=== PATIENT | male | born 1960 | race Caucasian/White ===

== ENCOUNTER 2019-12-11 10:32 | Day surgery (SDC) | payer OTHER ==
[2019-12-11 11:29] VITALS: BMI 30.7
[2019-12-11 12:31] VITALS: TEMP 97.6
[2019-12-11 12:53] VITALS: BP 125/82; PULSE 62
--- NOTE | 2019-12-12 18:14 | PATH ---
Surgical Pathology Report Patient Name: VIVIANA ROJAS [facility]. Rec. #: [id number] /Age/Gender: 1960 (Age: 59) / M Account: [id number] Location: U-ENDOSCOPY Taken: 12/11/2019 Received: 12/11/2019 Reported: 12/12/2019 Physicians: Syed Quevedo D.O. Specimen(s) Received A: ANTRUM B: ANGULARIS AND BODY C: CARDIA POLYP Clinical History Abdominal pain Postoperative diagnosis: Gastritis and polyp at the cardia Final Diagnosis A. Stomach, antrum, biopsy: Gastric ANTRAL mucosa with moderate chronic gastritis and focal intestinal metaplasia. No dysplasia identified. Immunohistochemical STAIN FOR H. Pylori is negative. B. Stomach, angularis and body, biopsy: Gastric body mucosa with moderate chronic gastritis. Immunohistochemical STAIN FOR H. Pylori is negative. C. Stomach, CARDIA POLYP, biopsy: Gastric hyperplastic polyp. Immunohistochemical STAIN FOR H. Pylori is negative. Positive and negative controls (internal if applicable) show appropriate results. Electronically Signed Ofe Amos M.D. Gross Description A. Received in formalin, labeled "antrum biopsy" are 2 arredondo, irregular portions of soft tissue measuring 0.2 and 0.4 cm. in greatest dimension. The specimens are submitted in toto in one cassette. B. Received in formalin, labeled "angularis and body biopsy" are 3 arredondo, irregular portions of soft tissue ranging from 0.2-0.4 cm. in greatest dimension. The specimens are submitted in toto in one cassette. C. Received in formalin, labeled "polyp at cardia" is a arredondo, irregular portion of soft tissue measuring 0.2 cm. in greatest dimension. The specimen is submitted in toto in one cassette. DL/12/11/2019 saudi/12/11/2019
== END 2019-12-11 13:15 | disposition home or self-care (01) ==
LOC: JASU-ENDO 10:32
PROVIDERS: ATTEND Internal Medicine Gastroenterology
PROC: 0DB68ZX Excision of Stomach, Via Natural or Artificial Opening Endoscopic, Diagnostic (ICD-10-PCS; principal; 2019-12-11 11:45)
DX: K29.50 Unspecified chronic gastritis without bleeding (principal); K31.7 Polyp of stomach and duodenum
CPT/HCPCS: 88305-TC; 88342-TC